=== PATIENT | male | born 1990 | race Caucasian/White ===

== ENCOUNTER 2017-06-12 12:01 | Emergency (ER) | payer BC ==
[2017-06-12] MEDS ORDERED: fentaNYL 100 MCG/2 ML SDV IVPUSH PRN (12:14)
[2017-06-12 12:37] LABS: CHLORIDE,CL 104 mEq/L (98-106); SODIUM,NA 142 mEq/L (136-145)
[2017-06-12] MEDS ORDERED: fentaNYL 100 MCG/2 ML SDV IVPUSH ONE (12:39)
[2017-06-12] MEDS ORDERED: Promethazine 25 MG in Sodium Chloride 0.9% 50 ML IV ONE (12:40)
[2017-06-12] MEDS ORDERED: Ketorolac 30 MG/ML SDV IVPUSH ONE (12:43)
[2017-06-12] MEDS ORDERED: Ondansetron 4 MG/2 ML SDV IVPUSH PRN (12:46)
--- NOTE | 2017-06-12 12:54 | EDM.PDOC ---
<Michela Suarez - Last Filed: 06/12/17 16:03> ED HPI GENERAL MEDICAL PROBLEM - General Chief Complaint: Gastrointestinal Problem Stated Complaint: SEVERE RIGHT SIDED ABDOMEN PAIN Time Seen by Provider: 06/12/17 12:25 Source of Information: Reports: Patient History Limitations: Reports: No Limitations - History of Present Illness INITIAL COMMENTS - FREE TEXT/NARRATIVE: Patient presents to ED with complaints of right lower quadrant pain. He states it had a sudden onset this am. Has been nauseated, vomiting at home. He denies diarrhea or constipation. No urinary complaints. No fever. Has had no previous surgeries on his abdomen. He states he has pain no matter the position he is in. Denies any history of kidney stones. Onset: Today, Sudden Duration: Hour(s): Location: Reports: Abdomen Quality: Reports: Sharp Severity: Severe Associated Symptoms: Reports: Nausea/Vomiting. Denies: Confusion, Chest Pain, Cough, Fever/Chills, Loss of Appetite, Shortness of Breath Right Lower Abdominal Pain Score (Numeric/FACES): 7 - Related Data Allergies Allergy/AdvReac Type Severity Reaction Status Date / Time No Known Allergies Allergy Verified 06/12/17 12:06 Home Meds: Home Meds . [No Known Home Meds] 08/20/15 [History] Past Medical History Musculoskeletal History: Reports: Other (See Below) Other Musculoskeletal History: SCOLIOSIS Social & Family History - Family History Family Medical History: Noncontributory - Tobacco Use Smoking Status *Q: Never Smoker - Recreational Drug Use Recreational Drug Use: No ED ROS GENERAL - Review of Systems Review Of Systems: See Below Constitutional: Denies: Fever, Chills, Decreased Appetite HEENT: Reports: No Symptoms Respiratory: Denies: Shortness of Breath, Cough Cardiovascular: Denies: Chest Pain, Edema, Lightheadedness Endocrine: Reports: No Symptoms GI/Abdominal: Reports: Abdominal Pain, Nausea, Vomiting : Reports: No Symptoms Musculoskeletal: Reports: No Symptoms Skin: Reports: No Symptoms ED EXAM, GI/ABD - Physical Exam Exam: See Below Exam Limited By: No Limitations General Appearance: Alert, WD/WN, Moderate Distress Ears: Normal External Exam, Normal TMs Nose: Normal Inspection, Normal Mucosa, No Blood Throat/Mouth: Normal Inspection, Normal Oropharynx Head: Normocephalic Neck: Normal Inspection, Supple, Non-Tender Respiratory/Chest: No Respiratory Distress, Lungs Clear, Normal Breath Sounds Cardiovascular: Regular Rate, Rhythm GI/Abdominal Exam: Normal Bowel Sounds, Soft, Tender Extremities: Normal Inspection, Normal Capillary Refill Neurological: Alert, Oriented Psychiatric: Normal Affect, Anxious Skin Exam: Warm, Dry Course - Vital Signs Last Recorded V/S: Last Vital Signs Temp 98.1 F 06/12/17 13:05 Pulse 62 06/12/17 13:05 Resp 20 06/12/17 13:05 BP 140/105 H 06/12/17 13:05 Pulse Ox 100 06/12/17 13:05 - Orders/Labs/Meds Orders: Active Orders 24 hr Category Date Time Status Abdomen 2V AP Flat Upright [CR] Stat Exams 06/12/17 12:09 Taken Abdomen Pelvis wo Cont [CT] Stat Exams 06/12/17 12:44 Taken Labs: Laboratory Tests 06/12/17 06/12/17 06/12/17 Range/Units 12:23 12:23 12:30 WBC 8.0 (5.0-10.0) 10^3/uL RBC 5.18 (4.50-6.00) 10^6/uL Hgb 15.1 (14.0-18.0) g/dL Hct 45.9 (40.0-54.0) % MCV 88.6 (82.0-94.0) fL MCH 29.2 (27.0-32.0) pg MCHC 32.9 L (33.0-38.0) g/dL RDW Coeff of Merle 13.1 (11.0-15.0) % Plt Count 248 (150-400) 10^3/uL Neut % (Auto) 52.8 (35-85) % Lymph % (Auto) 37.9 (10-55) % [place] % (Auto) 7.6 (0-16) % Eos % (Auto) 1.6 (0-5) % Baso % (Auto) 0.1 (0-3) % Neut # (Auto) 4.24 (1.80-7.00) 10^3/uL Lymph # (Auto) 3.05 (1.00-4.80) 10^3/uL [place] # (Auto) 0.61 (0.00-0.80) 10^3/uL Eos # (Auto) 0.13 (0.00-0.45) 10^3/uL Baso # (Auto) 0.01 10^3/uL Sodium 142 (136-145) mEq/L Potassium 3.3 L (3.5-5.0) mEq/L Chloride 104 (98-106) mEq/L Carbon Dioxide 26 (21-32) mmol/L BUN 18 (7-18) mg/dL Creatinine 1.3 (0.7-1.3) mg/dL Est Cr Clr Drug Dosing 99.24 mL/min Estimated GFR (MDRD) > 60 (>=60) mL/min Glucose 133 H (75-99) mg/dL Calcium 9.0 (8.4-10.1) mg/dL Total Bilirubin 0.4 (0.0-1.0) mg/dL AST 17 (15-37) U/L ALT 38 (12-78) U/L Alkaline Phosphatase 88 (46-116) U/L C-Reactive Protein < 0.2 L (0.2-0.8) mg/dL Total Protein 7.5 (6.4-8.2) g/dL Albumin 4.1 (3.4-5.0) g/dL Amylase 80 (25-115) U/L Urine Color Yellow (YELLOW) Urine Appearance Clear (CLEAR) Urine pH 7.5 (4.5-8.0) Ur Specific [place] 1.025 H (1.003-1.020) Urine Protein Negative (NEGATIVE) mg/dL Urine Glucose (UA) Negative (NEGATIVE) mg/dL Urine Ketones Negative (NEGATIVE) mg/dL Urine Occult Blood Small H (NEGATIVE) Urine Nitrite Negative (NEGATIVE) Urine Bilirubin Negative (NEGATIVE) Urine Urobilinogen 0.2 (0.2-1.0) EU/dL Ur Leukocyte Esterase Negative (NEGATIVE) Urine RBC 20-30 H (0-5) /HPF Urine WBC Not seen (0-5) /HPF Ur Epithelial Cells Occasional H (NOT SEEN) /HPF Meds: Medications Discontinued Medications Generic Name Dose Route Start Last Admin Trade Name Freq PRN Reason Stop Dose Admin Fentanyl 25 mcg 06/12/17 12:14 06/12/17 12:32 Sublimaze IVPUSH 25 mcg Q6H PRN Administration Pain Fentanyl 25 mcg 06/12/17 12:39 06/12/17 12:46 Sublimaze IVPUSH 06/12/17 12:40 25 mcg ONETIME ONE Administration Promethazine HCl 25 mg/ Sodium 51 mls @ 100 mls/hr 06/12/17 12:40 06/12/17 13 :15 Chloride IV 06/12/17 13:10 Not Given NOW ONE Lactated Ringer's 1,000 mls @ 250 mls/hr 06/12/17 13:15 06/12/17 13:11 Ringers, Lactated IV 250 mls/hr ASDIRECTED JOSH Administration Ketorolac Tromethamine 30 mg 06/12/17 12:43 06/12/17 13:25 Toradol IVPUSH 06/12/17 12:44 30 mg ONETIME ONE Administration Ondansetron HCl 4 mg 06/12/17 12:46 06/12/17 12:50 Zofran IVPUSH 4 mg Q6H PRN Administration Nausea - Re-Assessments/Exams Free Text/Narrative Re-Assessment/Exam: 06/12/17 1300 Lab results reviewed. Proceed with CT scan to rule out stone. Report given to Alondra Alberto who will resume care. Departure - Departure Disposition: Home, Self-Care 01 Clinical Impression: Kidney stone - Discharge Information Instructions: Kidney Stones, [id number] Referrals: PCP,None [Primary Care Provider] - Forms: ED Department Discharge Additional Instructions: Push fluids as much as tolerated for the next 2-3 days. Tylenol or advil as needed for discomfort You may see some blood in your urine in the next 1-2 days and this can be normal. Recheck if pain returns. <DollyAlondra Charleen - Last Filed: 06/12/17 22:27> Course - Re-Assessments/Exams Free Text/Narrative Re-Assessment/Exam: 06/12/[address] results. WIll increase the fluids at this time and have him push oral and recheck to see if pain subsidess 1530 States that pain is down to 2 and his fluids are infused. Will discharge at this time. Departure - Departure Time of Disposition: 15:31 Condition: Good - Problem List & Annotations (1) Kidney stone SNOMED Code(s): 00383276 Code(s): N20.0 - CALCULUS OF KIDNEY Status: Acute - Problem List Review Problem List Initiated/Reviewed/Updated: Yes
[2017-06-12 13:06] VITALS: BP 140/105
[2017-06-12] MEDS ORDERED: Lactated Ringers 1,000 ML IV SCH (13:15)
== END 2017-06-12 15:40 | disposition home or self-care (01) ==
LOC: CC.ED 12:01
DX: N20.0 Calculus of kidney (principal)
CPT/HCPCS: 36415; 74019; 74176; 80053; 81001; 82150; 85025; 86140; 96361; 96374; 96375; 99284; J1885; J2405; J3010; J7120